=== PATIENT | female | born 1955 | race Caucasian/White ===

== ENCOUNTER 2016-06-14 09:03 | Emergency (ER) | payer OTHER, BC ==
[2016-06-14 09:23] VITALS: BP 172/86
[2016-06-14] MEDS ORDERED: Benzocaine 20% Topical Spray UD MUCMEM ONE (09:27)
[2016-06-14] MEDS ORDERED: Lidocaine 2% Viscous Solution 15 ML Cup PO ONE (09:27)
--- NOTE | 2016-06-14 09:31 | EDM.PDOC ---
ED HPI GENERAL MEDICAL PROBLEM - General Chief Complaint: General Stated Complaint: ORAL ISSUES Time Seen by Provider: 06/14/16 09:20 - History of Present Illness INITIAL COMMENTS - FREE TEXT/NARRATIVE: HISTORY AND PHYSICAL: History of present illness: The patient is a healthy 61-year-old female has been working with a local dentist, Dr. Marte, to address a tooth issue at the right upper posterior molar area. She had a repeat root canal performed there and she was scheduled to come back 2 weeks but missed that appointment. She received antibiotics after that procedure and finish them. She says that she has noted some swelling to her right face and some discomfort in that area and noticed some drainage of pus from the site. She attempted to call the dentist yesterday but the office was closed and she was concerned about an infection and she wanted to interrupt the process of so she could get definitive care this week. She's had no systemic complaints of fever chills sore throat runny nose sinus congestion cough nausea or vomiting Review of systems: As per history of present illness and below otherwise all systems reviewed and negative. Past medical history: As per history of present illness and as reviewed below otherwise noncontributory. Surgical history: As per history of present illness and as reviewed below otherwise noncontributory. Social history: No reported history of drug or alcohol abuse. Family history: As per history of present illness and as reviewed below otherwise noncontributory. Physical exam: General: Well-developed well-nourished female who is nontoxic vital signs of a noted by me. She has only minimal right maxillary swelling appreciated on visual inspection. There is no crepitus to palpation of this area HEENT: Atraumatic, normocephalic, pupils reactive, negative for conjunctival pallor or scleral icterus, mucous membranes moist, throat clear, neck supple, nontender, trachea midline. At the right upper posterior jaw area there is no gross fluctuance no drainage but there is mild tenderness to palpation. There is no cervical adenopathy or nuchal rigidity Lungs: Clear to auscultation, breath sounds equal bilaterally, chest nontender. Heart: S1S2, regular, negative for clicks, rubs, or JVD. Abdomen: Soft, nondistended, nontender. NABS Genitourinary: Deferred. Rectal: Deferred. Extremities: Atraumatic, negative for cords or calf pain. Neurovascular unremarkable. Neuro: Awake, alert, oriented. Cranial nerves II through XII unremarkable. Cerebellum unremarkable. Motor and sensory unremarkable throughout. Exam nonfocal. Diagnostics: [] Therapeutics: Dental balls Impression: Early gum infection Definitive disposition and diagnosis as appropriate pending reevaluation and review of above. Right Upper Tooth/Teeth Pain Score (Numeric/FACES): 4 - Related Data Allergies Allergy/AdvReac Type Severity Reaction Status Date / Time No Known Allergies Allergy Verified 10/21/14 23:17 Home Meds: Home Meds Losartan/Hydrochlorothiazide [Losartan-HCTZ 50-12.5 MG] 50 mg PO PRN 10/21/14 [ History] Past Medical History - Past Surgical History Other GI Surgeries/Procedures: gastric bipass Other Musculoskeletal Surgeries/Procedures:: ankle surgery Social & Family History - Tobacco Use Smoking Status *Q: Never Smoker - Recreational Drug Use Recreational Drug Use: No ED ROS GENERAL - Review of Systems Review Of Systems: ROS reveals no pertinent complaints other than HPI. ED EXAM, GENERAL - Physical Exam Exam: See Below (See dictation) Course - Vital Signs Last Recorded V/S: Last Vital Signs Temp 36.5 C 06/14/16 09:19 Pulse 66 06/14/16 09:19 Resp 16 06/14/16 09:19 BP 172/86 H 06/14/16 09:19 Pulse Ox 95 06/14/16 09:19 - Orders/Labs/Meds Orders: Active Orders 24 hr Category Date Time Status Benzocaine [Hurricaine One 20%] Med 06/14/16 09:27 Once 2 each MUCMEM ONETIME ONE Lidocaine 2% [Xylocaine 2% Viscous] Med 06/14/16 09:27 Once 15 ml PO ONETIME ONE Departure - Departure Time of Disposition: 09:30 Disposition: Home, Self-Care 01 Condition: good Clinical Impression: Oral infection Forms: ED Department Discharge Additional Instructions: The following information is given to patients seen in the emergency department who are being discharged to home. This information is to outline your options for follow-up care. We provide all patients seen in our emergency department with a follow-up referral. The need for follow-up, as well as the timing and circumstances, are variable depending upon the specifics of your emergency department visit. If you don't have a primary care physician on staff, we will provide you with a referral. We always advise you to contact your personal physician following an emergency department visit to inform them of the circumstance of the visit and for follow-up with them and/or the need for any referrals to a consulting specialist. The emergency department will also refer you to a specialist when appropriate. This referral assures that you have the opportunity for followup care with a specialist. All of these measure are taken in an effort to provide you with optimal care, which includes your followup. Under all circumstances we always encourage you to contact your private physician who remains a resource for coordinating your care. When calling for followup care, please make the office aware that this follow-up is from your recent emergency room visit. If for any reason you are refused follow-up, please contact the [facility] emergency department at and ask to speak to the emergency department charge nurse. [facility] Primary care- [place] [address] Please call and schedule an appointment with her dentist this week for definitive care and treatment. Use ice to face for any swelling and use dental balls given to today for pain management along with [id number] Tylenol and ibuprofen. Please take antibiotics until they're finished ER as needed and as discussed - My Orders Last 24 Hours: My Active Orders 06/14/16 09:27 Benzocaine [Hurricaine One 20%] 2 each MUCMEM ONETIME ONE Lidocaine 2% [Xylocaine 2% Viscous] 15 ml PO ONETIME ONE - Assessment/Plan Last 24 Hours: My Active Orders 06/14/16 09:27 Benzocaine [Hurricaine One 20%] 2 each MUCMEM ONETIME ONE Lidocaine 2% [Xylocaine 2% Viscous] 15 ml PO ONETIME ONE
== END 2016-06-14 09:43 | disposition home or self-care (01) ==
LOC: MW.ED 09:03
DX: K04.7 Periapical abscess without sinus (principal); Z98.84 Bariatric surgery status; Z98.890 Other specified postprocedural states
CPT/HCPCS: 99282; A9270; 99283

== ENCOUNTER 2017-11-03 07:32 | Emergency (ER) | payer OTHER, BC ==
[2017-11-03] MEDS ORDERED: Sodium Chloride 0.9% 1,000 ML IV SCH (07:45)
[2017-11-03] MEDS ORDERED: Ondansetron 4 MG/2 ML SDV IVPUSH ONE (07:45)
--- NOTE | 2017-11-03 07:46 | EDM.PDOC ---
ED HPI GENERAL MEDICAL PROBLEM - General Chief Complaint: Abdominal Pain Stated Complaint: RIGHT SIDE PAIN Time Seen by Provider: 11/03/17 07:46 Source of Information: Reports: Patient - History of Present Illness INITIAL COMMENTS - FREE TEXT/NARRATIVE: HISTORY AND PHYSICAL: History of present illness: []Patient presents with right flank pain radiating around to her abdomen for 24 hours no fever vomiting chills sweats she has had some intermittent nausea arrival no chest pain shortness breath headache dizziness palpitation no bowel or urine symptoms Review of systems: As per history of present illness and below otherwise all systems reviewed and negative. Past medical history: As per history of present illness and as reviewed below otherwise noncontributory. Surgical history: As per history of present illness and as reviewed below otherwise noncontributory. Social history: No reported history of drug or alcohol abuse. Family history: As per history of present illness and as reviewed below otherwise noncontributory. Physical exam: HEENT: Atraumatic, normocephalic, pupils reactive, negative for conjunctival pallor or scleral icterus, mucous membranes moist, throat clear, neck supple, nontender, trachea midline. Lungs: Clear to auscultation, breath sounds equal bilaterally, chest nontender. Heart: S1S2, regular, negative for clicks, rubs, or JVD. Abdomen: Soft, nondistended, nontender. Negative for masses or hepatosplenomegaly. Negative for costovertebral tenderness. Pelvis: Stable nontender. Genitourinary: Deferred. Rectal: Deferred. Extremities: Atraumatic, negative for cords or calf pain. Neurovascular unremarkable. Neuro: Awake, alert, oriented. Cranial nerves II through XII unremarkable. Cerebellum unremarkable. Motor and sensory unremarkable throughout. Exam nonfocal. Diagnostics: []CBC CMP UA with culture blood cultures 2 lipase troponin ET abdomen pelvis no contrast Therapeutics: [] 1 L normal saline Morphine 2 mg IV Zofran 8 mg IV GI cocktail Levaquin 500 mg by mouth Toradol 30 mg IV Levaquin 500 mg daily #10 no refill Zofran [place] Patient offered observation admission and refused/declined desiring to treat at home will return if symptoms persist or worsen Impression: Right pyelonephritisfinitive disposition and diagnosis as appropriate pending reevaluation and review of above. Right sided Mid Abdomen Pain Score (Numeric/FACES): 8 - Related Data Allergies Allergy/AdvReac Type Severity Reaction Status Date / Time Fish Containing Products Allergy Difficulty Verified 11/03/17 07:45 Breathing mold Allergy Hives Verified 11/03/17 07:45 Home Meds: Home Meds Alendronate [Fosamax] 35 mg PO WEEKLY 06/14/16 [History] Latanoprost [Xalatan 0.005% Ophth Soln] 1 drop EYEBOTH BEDTIME 06/14/16 [History ] Losartan [Cozaar] 50 mg PO DAILY 06/14/16 [History] Metoprolol Succinate [Toprol XL] 25 mg PO DAILY 06/14/16 [History] Timolol [Betimol] 1 drop EYEBOTH DAILY 06/14/16 [History] PARoxetine [Paxil] 11/03/17 [History] Past Medical History Cardiovascular History: Reports: Hypertension - Past Surgical History GI Surgical History: Reports: Bariatric Procedure Musculoskeletal Surgical History: Reports: Other (See Below) Social & Family History - Family History Family Medical History: Noncontributory - Caffeine Use Caffeine Use: Reports: None ED ROS GENERAL - Review of Systems Review Of Systems: See Below ED EXAM, GENERAL - Physical Exam Exam: See Below Course - Vital Signs Last Recorded V/S: Last Vital Signs Temp 98.3 F 11/03/17 09:23 Pulse 61 11/03/17 09:23 Resp 16 11/03/17 09:23 BP 141/78 H 11/03/17 09:23 Pulse Ox 95 11/03/17 09:23 - Orders/Labs/Meds Orders: Active Orders 24 hr Category Date Time Status EKG Documentation Completion [RC] STAT Care 11/03/17 07:45 Active Abdomen Pelvis wo Cont [CT] Stat Exams 11/03/17 08:09 Taken CULTURE BLOOD [BC] Stat Lab 11/03/17 09:35 Received CULTURE BLOOD [BC] Stat Lab 11/03/17 09:45 Received CULTURE URINE [RM] Stat Lab 11/03/17 08:20 Received Sodium Chloride 0.9% [Normal Saline] 1,000 ml Med 11/03/17 07:45 Active IV STAT Blood Culture x2 Reflex Set [OM.PC] Stat Oth 11/03/17 08:58 Ordered Medication Orders Sodium Chloride (Normal Saline) 1,000 mls @ 125 mls/hr IV STAT BRANNON Last Admin: 11/03/17 08:15 Dose: 125 mls/hr Labs: Laboratory Tests 11/03/17 11/03/17 11/03/17 Range/Units 07:55 07:55 08:10 WBC 3.91 L (4.0-11.0) K/uL RBC 4.42 (4.30-5.90) M/uL Hgb 14.9 (12.0-16.0) g/dL Hct 43.0 (36.0-46.0) % MCV 97.3 (80.0-98.0) fL MCH 33.7 H (27.0-32.0) pg MCHC 34.7 (31.0-37.0) g/dL RDW Std Deviation 45.1 (28.0-62.0) fl RDW Coeff of Gris 13 (11.0-15.0) % Plt Count 176 (150-400) K/uL MPV 9.30 (7.40-12.00) fL Neut % (Auto) 39.9 L (48.0-80.0) % Lymph % (Auto) 43.5 H (16.0-40.0) % [place] % (Auto) 12.5 (0.0-15.0) % Eos % (Auto) 3.3 (0.0-7.0) % Baso % (Auto) 0.8 (0.0-1.5) % Neut # (Auto) 1.6 (1.4-5.7) K/uL Lymph # (Auto) 1.7 (0.6-2.4) K/uL [place] # (Auto) 0.5 (0.0-0.8) K/uL Eos # (Auto) 0.1 (0.0-0.7) K/uL Baso # (Auto) 0.0 (0.0-0.1) K/uL Nucleated RBC % 0.0 /100WBC Nucleated RBCs # 0 K/uL Sodium 141 (136-145) mmol/L Potassium 4.3 (3.5-5.1) mmol/L Chloride 104 (98-107) mmol/L Carbon Dioxide 28.1 (21.0-32.0) mmol/L BUN 10 (7.0-18.0) mg/dL Creatinine 0.7 (0.6-1.0) mg/dL Est Cr Clr Drug Dosing 86.21 mL/min Estimated GFR (MDRD) > 60.0 ml/min Glucose 111 H (74-106) mg/dL Calcium 8.5 (8.5-10.1) mg/dL Total Bilirubin 0.5 (0.2-1.0) mg/dL AST 33 (15-37) IU/L ALT 35 (14-63) IU/L Alkaline Phosphatase 80 (46-116) U/L Troponin I < 0.050 (0.000-0.056) ng/mL Total Protein 7.2 (6.4-8.2) g/dL Albumin 3.5 (3.4-5.0) g/dL Globulin 3.7 H (2.0-3.5) g/dL Albumin/Globulin Ratio 1.0 L (1.3-2.8) Lipase 205 (73-393) U/L Urine Color DARK YELLOW Urine Appearance SLT CLOUDY Urine pH 6.0 (5.0-8.0) Ur Specific [place] 1.020 (1.001-1.035) Urine Protein NEGATIVE (NEGATIVE) mg/dL Urine Glucose (UA) NEGATIVE (NEGATIVE) mg/dL Urine Ketones NEGATIVE (NEGATIVE) mg/dL Urine Occult Blood TRACE-INTACT (NEGATIVE) Urine Nitrite POSITIVE H (NEGATIVE) Urine Bilirubin NEGATIVE (NEGATIVE) Urine Urobilinogen 0.2 (<2.0) EU/dL Ur Leukocyte Esterase SMALL (NEGATIVE) Urine RBC 0-3 (0-2/HPF) Urine WBC 18-25 (0-5/HPF) Ur Epithelial Cells FEW (NONE-FEW) Urine Bacteria 3+ H (NEGATIVE) Meds: Medications Generic Name Dose Route Start Last Admin Trade Name Freq PRN Reason Stop Dose Admin Sodium Chloride 1,000 mls @ 125 mls/hr 11/03/17 07:45 11/03/17 08:15 Normal Saline IV 125 mls/hr STAT BRANNON Administration Discontinued Medications Generic Name Dose Route Start Last Admin Trade Name Freq PRN Reason Stop Dose Admin Al Hydroxide/Mg Hydroxide 15 0 ml 11/03/17 09:48 ml/ Metoclopramide HCl 5 mg/ PO 11/03/17 09:49 Lidocaine HCl 5 ml ONETIME ONE Ketorolac Tromethamine 30 mg 11/03/17 09:47 Toradol IVPUSH 11/03/17 09:48 ONETIME ONE Levofloxacin 500 mg 11/03/17 09:51 Levaquin PO 11/03/17 09:52 ONETIME ONE Morphine Sulfate 2 mg 11/03/17 08:09 11/03/17 08:19 Morphine IVPUSH 11/03/17 08:10 2 mg ONETIME ONE Administration Ondansetron HCl 8 mg 11/03/17 07:45 11/03/17 08:16 Zofran IVPUSH 11/03/17 07:46 8 mg ONETIME ONE Administration Pantoprazole Sodium 80 mg 11/03/17 09:12 11/03/17 09:20 Protonix Iv IVPUSH 11/03/17 09:13 80 mg .BOLUS ONE Administration Departure - Departure Time of Disposition: 09:54 Disposition: Home, Self-Care 01 Condition: Good Clinical Impression: Pyelonephritis - Discharge Information Referrals: Brian Villa MD [Primary Care Provider] - Forms: ED Department Discharge Additional Instructions: Medications as prescribed Return if symptoms persist or worsen or new concerning symptoms develop Follow-up with primary care in 2 weeks sooner as needed [facility] - Primary Care [address] [place] [address] The following information is given to patients seen in the emergency department who are being discharged to home. This information is to outline your options for follow-up care. We provide all patients seen in our emergency department with a follow-up referral. The need for follow-up, as well as the timing and circumstances, are variable depending upon the specifics of your emergency department visit. If you don't have a primary care physician on staff, we will provide you with a referral. We always advise you to contact your personal physician following an emergency department visit to inform them of the circumstance of the visit and for follow-up with them and/or the need for any referrals to a consulting specialist. The emergency department will also refer you to a specialist when appropriate. This referral assures that you have the opportunity for follow-up care with a specialist. All of these measure are taken in an effort to provide you with optimal care, which includes your follow-up. Under all circumstances we always encourage you to contact your private physician who remains a resource for coordinating your care. When calling for follow-up care, please make the office aware that this follow-up is from your recent emergency room visit. If for any reason you are refused follow-up, please contact the [facility] emergency department at and asked to speak to the emergency department charge nurse. - My Orders Last 24 Hours: My Active Orders 11/03/17 07:45 EKG Documentation Completion [RC] STAT Sodium Chloride 0.9% [Normal Saline] 1,000 ml IV STAT 11/03/17 08:09 Abdomen Pelvis wo Cont [CT] Stat 11/03/17 08:20 CULTURE URINE [RM] Stat 11/03/17 08:58 Blood Culture x2 Reflex Set [OM.PC] Stat 11/03/17 09:35 CULTURE BLOOD [BC] Stat 11/03/17 09:45 CULTURE BLOOD [BC] Stat - Assessment/Plan Last 24 Hours: My Active Orders 11/03/17 07:45 EKG Documentation Completion [RC] STAT Sodium Chloride 0.9% [Normal Saline] 1,000 ml IV STAT 11/03/17 08:09 Abdomen Pelvis wo Cont [CT] Stat 11/03/17 08:20 CULTURE URINE [RM] Stat 11/03/17 08:58 Blood Culture x2 Reflex Set [OM.PC] Stat 11/03/17 09:35 CULTURE BLOOD [BC] Stat 11/03/17 09:45 CULTURE BLOOD [BC] Stat
[2017-11-03] MEDS ORDERED: Morphine 2 MG/ML Syringe IVPUSH ONE (08:09)
[2017-11-03 08:39] LABS: CHLORIDE,CL 104 mmol/L (98-107); SODIUM,NA 141 mmol/L (136-145)
[2017-11-03] MEDS ORDERED: Pantoprazole 40 MG Vial IVPUSH ONE (09:12)
[2017-11-03 09:23] VITALS: BP 141/78
[2017-11-03] MEDS ORDERED: Ketorolac 30 MG/ML SDV IVPUSH ONE (09:47)
[2017-11-03] MEDS ORDERED: Alum Hydrox/Mag Hydrox/Simeth 15 ML, Metoclopramide 5 MG, Lidocaine 2% 5 ML PO ONE ×3 (09:48)
[2017-11-03] MEDS ORDERED: Levofloxacin 500 MG Tab PO ONE (09:51)
--- NOTE | 2017-11-03 11:29 | CT ---
EXAM DATE: 11/03/17 PATIENT'S AGE: 62 Patient: KARYNA CHATMAN Facility: [place], [place] Site . Site : [id number] Study: CT Abdomen/Pelvis wo. cont. [id number]/25/2018 8:39:27 AM Ordering Physician: Natalie Connolly Final Report: INDICATION: Right-sided flank pain. TECHNIQUE: Noncontrast CT of the abdomen and pelvis. FINDINGS: There are postsurgical changes of gastric bypass and cholecystectomy. 2 mm nonobstructing stone lower pole right kidney image 70 series 201. No left-sided renal stones. Small parapelvic renal cysts. The unenhanced liver, spleen, pancreas, both adrenal glands, abdominal aorta, iliac arteries, and inferior vena cava are normal. The small and large bowel are negative for obstruction or ileus and there is no ascites or lymphadenopathy. Urinary bladder is largely decompressed. The uterus and both adnexa are unremarkable. Tiny calcified pelvic phleboliths. Clear included lung bases. Scattered hypertrophic and degenerative change of the spine. IMPRESSION: 1. No acute abdominopelvic process identified. 2. 2 mm nonobstructing stone lower pole right kidney. 3. Postsurgical change in the upper abdomen. Please note that all CT scans at this facility use dose modulation, iterative reconstruction, and/or weight-based dosing when appropriate to reduce radiation dose to as low as reasonably achievable. Dictated by Bentley Watters MD @ Nov 03 2017 8:44AM (Electronic Signature) Report Signed by Proxy. JAYLEN
== END 2017-11-03 10:45 | disposition home or self-care (01) ==
LOC: MW.ED 07:32
DX: N12 Tubulo-interstitial nephritis, not specified as acute or chronic (principal); I10 Essential (primary) hypertension; Z91.013 Allergy to seafood; Z88.8 Allergy status to other drugs, medicaments and biological substances
CPT/HCPCS: 36415; 74176; 80053; 81001; 83690; 84484; 85025; 87040; 87086; 93005; 96361; 96374; 96375; 99284; A9270; C9113; J1885; J2270; J2405; J7040; 87088; 87186; 99283

== ENCOUNTER 2020-01-28 09:53 | Emergency (ER) | payer OTHER, BC ==
[2020-01-28] MEDS ORDERED: Pantoprazole 80 MG in Sodium Chloride 0.9% 20 ML IVPUSH ONE (10:24)
--- NOTE | 2020-01-28 10:56 | EDM.PDOC ---
<Jacobo Ruiz - Last Filed: 01/28/20 11:02> ED HPI GENERAL MEDICAL PROBLEM - General Chief Complaint: Gastrointestinal Problem Stated Complaint: BLOOD IN STOOL Time Seen by Provider: 01/28/20 10:00 - Related Data Allergies Allergy/AdvReac Type Severity Reaction Status Date / Time Fish Containing Products Allergy Difficulty Verified 11/03/17 07:45 Breathing mold Allergy Hives Verified 11/03/17 07:45 Home Meds: Home Meds Alendronate [Fosamax] 35 mg PO WEEKLY 06/14/16 [History] Latanoprost [Xalatan 0.005% Ophth Soln] 1 drop EYEBOTH BEDTIME 06/14/16 [Histor y] Losartan [Cozaar] 50 mg PO DAILY 06/14/16 [History] Metoprolol Succinate [Toprol XL] 25 mg PO DAILY 06/14/16 [History] Timolol [Betimol] 1 drop EYEBOTH DAILY 06/14/16 [History] PARoxetine [Paxil] 11/03/17 [History] Departure - Departure Disposition: Home, Self-Care 01 Clinical Impression: Melena, Alcohol abuse - Discharge Information Referrals: Brian Villa MD [Primary Care Provider] - Forms: ED Department Discharge Additional Instructions: The following information is given to patients seen in the emergency department who are being discharged to home. This information is to outline your options for follow-up care. We provide all patients seen in our emergency department with a follow-up referral. The need for follow-up, as well as the timing and circumstances, are variable depending upon the specifics of your emergency department visit. If you don't have a primary care physician on staff, we will provide you with a referral. We always advise you to contact your personal physician following an emergency department visit to inform them of the circumstance of the visit and for follow-up with them and/or the need for any referrals to a consulting specialist. The emergency department will also refer you to a specialist when appropriate. This referral assures that you have the opportunity for follow-up care with a specialist. All of these measure are taken in an effort to provide you with optimal care, which includes your follow-up. Under all circumstances we always encourage you to contact your private physician who remains a resource for coordinating your care. When calling for follow-up care, please make the office aware that this follow-up is from your recent emergency room visit. If for any reason you are refused follow-up, please contact the [facility] Emergency Department at and asked to speak to the emergency department charge nurse. [facility] [address] [place] [address] [facility] [address] [place] [id number] [facility] - General Surgery Professional Building [address] [facility], [address] [place] [address] 1. Take [id number] Prilosec as directed and as discussed. 2. Follow-up with a primary care provider and general surgeon as discussed. Return to the ED as needed and as discussed. <Cassidy Lin - Last Filed: 01/28/20 13:54> ED HPI GENERAL MEDICAL PROBLEM - General Source of Information: Reports: Patient History Limitations: Reports: No Limitations - History of Present Illness INITIAL COMMENTS - FREE TEXT/NARRATIVE: HISTORY AND PHYSICAL: History of present illness: Patient is a 64-year-old female who presents to the ED today with concern of dark stools that she has had 3 episodes of bowel movements with dark she states almost "black" stools. Patient states she had 2 episodes yesterday and one today of black stools. Patient states that she has never had this occur before. Patient states other than the dark stools, there has not been any associated s ymptoms. Patient states that she has not been taking Pepto-Bismol. Patient denies any heartburn. She states that her bowel movements have been normal for her in consistency. Patient states that she does drink 5-6 alcoholic beverages in the evening daily and that this is a routine along with her . Patient states that she does not become intoxicated when she drinks but this "helps her sleep ". Patient states that she does not drink all day and only drinks in the evenings. Patient denies any withdrawal symptoms if she were to not drink. She states she has a history of hypertension and denies any other health history. Patient denies fever, chills, chest pain, shortness of breath, or cough. Denies headache, neck stiff ness, change in vision, syncope, or near syncope. Denies nausea, vomiting, abdominal pain, diarrhea, constipation, or dysuria. Has not noted any blood in urine. Patient has been eating and drinking appropriately. Review of systems: As per history of present illness and below otherwise all systems reviewed and negative. Past medical history: As per history of present illness and as reviewed below otherwise noncontributory. Surgical history: As per history of present illness and as reviewed below otherwise noncontributory. Social history: See social history for further information Family history: As per history of present illness and as reviewed below otherwise noncontributory. Physical exam: General: Patient is alert, oriented, and in no acute distress. Patient sitting comfortably on exam table. Vitals stable and reviewed by me. HEENT: Atraumatic, normocephalic, pupils equal and reactive bilaterally, negative for conjunctival pallor or scleral icterus, mucous membranes moist, TMs normal bilaterally, throat clear, neck supple, nontender, trachea midline. No drooling or trismus noted. No meningeal signs. No hot potato voice noted. Lungs: Clear to auscultation, breath sounds equal bilaterally, chest nontender. Heart: S1S2, regular rate and rhythm without overt murmur Abdomen: Soft, nondistended, nontender. Negative for masses or hepatosplenomegaly. Negative for costovertebral tenderness. Pelvis: Stable nontender. Genitourinary: Deferred. Rectal: Hot Die Press Feeder at bedside Mei Estevez. No lesions, masses, hemorrhoids noted. Rectal tone intact. No internal hemorrhoids or masses noted. Patient does have darker stool on exam. Hemoccult positive. Skin: Intact, warm, dry. No lesions or rashes noted. Extremities: Atraumatic, negative for cords or calf pain. Neurovascular unremarkable. Neuro: Awake, alert, oriented. Cranial nerves II through XII unremarkable. Cerebellum unremarkable. Motor and sensory unremarkable throughout. Exam nonfocal. Notes: Hemoccult positive On exam, patient is vitally stable and appears comfortable. She does have some darker stool noted on rectal exam but no bright red blood. She is Hemoccult positive. Throughout stay in ED, patient remains vitally stable and comfortable. She has no other associative symptoms other than the episode of dark stool this morning and yesterday. Patient has not had any more bowel movements or dark stools since being in the emergency room. Repeat H&H is stable. Admission for observation offered to patient but she declines. All risks vs benefits discussed with patient and expresses understanding. Discussed the importance of stopping drinking alcohol/decreasing alcohol intake and limiting use of NSAID medication until further evaluation by her PCP/general surgery for endoscopy consideration. Discussed taking Prilosec as directed over the next 2 weeks. Patient states she does have an appointment on Thursday with her PCP, Dr. Villa for follow up. Discussed the importance for follow up with a primary care provider and general surgery for endoscopy consideration. Voices understanding and is agreeable to plan of care. Denies any further questions or concerns at this time. Diagnostics: EKG, CBC, CMP, UA, CXR, Trop, PT/INR, PTT, repeat H&H Therapeutics: Protonix Prescription: None Impression: Melena Alcohol abuse Plan: 1. Take [id number] Prilosec as directed and as discussed. 2. Follow-up with a primary care provider and general surgeon as discussed. Return to the ED as needed and as discussed. Definitive disposition and diagnosis as appropriate pending reevaluation and review of above. Past Medical History Cardiovascular History: Reports: Hypertension STONE HAND History: Reports: Musculoskeletal History: Reports: Back Pain, Chronic Neurological History: Reports: Migraines Psychiatric History: Reports: Anxiety Dermatologic History: Reports: Eczema - Past Surgical History GI Surgical History: Reports: Bariatric Procedure Musculoskeletal Surgical History: Reports: Other (See Below) Social & Family History - Family History Family Medical History: No Pertinent Family History Other Dermatologic Family History: Kidney Failure Oncologic: Reports: Other (See Below) Other Oncologic Family History: Mesothelioma - Caffeine Use Caffeine Use: Reports: None ED ROS GENERAL - Review of Systems Review Of Systems: Comprehensive ROS is negative, except as noted in HPI. ED EXAM, GENERAL - Physical Exam Exam: See Below (see dictation) Course - Vital Signs Last Recorded V/S: Last Vital Signs Temp 96.5 F L 01/28/20 10:09 Pulse 77 01/28/20 11:56 Resp 17 01/28/20 11:56 BP 140/81 01/28/20 11:56 Pulse Ox 98 01/28/20 11:56 - Orders/Labs/Meds Orders: Active Orders 24 hr Category Date Time Status EKG Documentation Completion [RC] STAT Care 01/28/20 10:24 Active Hemoccult [Fecal Occult Blood Collection] [RC] Care 01/28/20 10:23 Active ASDIRECTED CULTURE URINE [] Stat Lab 01/28/20 12:01 Received Labs: Laboratory Tests 01/28/20 01/28/20 01/28/20 Range/Units 10:46 10:46 10:46 WBC 5.23 (4.0-11.0) K/uL RBC 4.23 L (4.30-5.90) M/uL Hgb 14.3 (12.0-16.0) g/dL Hct 43.6 (36.0-46.0) % MCV 103.1 H (80.0-98.0) fL MCH 33.8 H (27.0-32.0) pg MCHC 32.8 (31.0-37.0) g/dL RDW Std Deviation 47.6 (28.0-62.0) fl RDW Coeff of Gris 13 (11.0-15.0) % Plt Count 168 (150-400) K/uL MPV 9.50 (7.40-12.00) fL Neut % (Auto) 55.4 (48.0-80.0) % Lymph % (Auto) 29.3 (16.0-40.0) % Weber % (Auto) 13.2 (0.0-15.0) % Eos % (Auto) 1.5 (0.0-7.0) % Baso % (Auto) 0.6 (0.0-1.5) % Neut # (Auto) 2.9 (1.4-5.7) K/uL Lymph # (Auto) 1.5 (0.6-2.4) K/uL Weber # (Auto) 0.7 (0.0-0.8) K/uL Eos # (Auto) 0.1 (0.0-0.7) K/uL Baso # (Auto) 0.0 (0.0-0.1) K/uL Nucleated RBC % 0.0 /100WBC Nucleated RBCs # 0 K/uL INR 1.05 APTT 23.7 (18.6-31.3) SEC Sodium 140 (136-145) mmol/L Potassium 4.1 (3.5-5.1) mmol/L Chloride 102 (98-107) mmol/L Carbon Dioxide 28.9 (21.0-32.0) mmol/L BUN 11 (7.0-18.0) mg/dL Creatinine 0.6 (0.6-1.0) mg/dL Est Cr Clr Drug Dosing 98.07 mL/min Estimated GFR (MDRD) > 60.0 ml/min Glucose 95 (74-106) mg/dL Calcium 8.6 (8.5-10.1) mg/dL Total Bilirubin 0.5 (0.2-1.0) mg/dL AST 24 (15-37) IU/L ALT 32 (14-63) IU/L Alkaline Phosphatase 79 (46-116) U/L Troponin I < 0.050 (0.000-0.056) ng/mL Total Protein 6.9 (6.4-8.2) g/dL Albumin 3.5 (3.4-5.0) g/dL Globulin 3.4 (2.6-4.0) g/dL Albumin/Globulin Ratio 1.0 (0.9-1.6) Lipase 90 (73-393) U/L Urine Color Urine Appearance Urine pH (5.0-8.0) Ur Specific Metaline (1.001-1.035) Urine Protein (NEGATIVE) mg/dL Urine Glucose (UA) (NEGATIVE) mg/dL Urine Ketones (NEGATIVE) mg/dL Urine Occult Blood (NEGATIVE) Urine Nitrite (NEGATIVE) Urine Bilirubin (NEGATIVE) Urine Urobilinogen (<2.0) EU/dL Ur Leukocyte Esterase (NEGATIVE) Urine RBC (0-2/HPF) Urine WBC (0-5/HPF) Ur Epithelial Cells (NONE-FEW) Urine Bacteria (NEGATIVE) Urinalysis Comment 01/28/20 01/28/20 Range/Units 12:01 12:55 WBC (4.0-11.0) K/uL RBC (4.30-5.90) M/uL Hgb 14.1 (12.0-16.0) g/dL Hct 42.6 (36.0-46.0) % MCV (80.0-98.0) fL MCH (27.0-32.0) pg MCHC (31.0-37.0) g/dL RDW Std Deviation (28.0-62.0) fl RDW Coeff of Gris (11.0-15.0) % Plt Count (150-400) K/uL MPV (7.40-12.00) fL Neut % (Auto) (48.0-80.0) % Lymph % (Auto) (16.0-40.0) % Weber % (Auto) (0.0-15.0) % Eos % (Auto) (0.0-7.0) % Baso % (Auto) (0.0-1.5) % Neut # (Auto) (1.4-5.7) K/uL Lymph # (Auto) (0.6-2.4) K/uL Weber # (Auto) (0.0-0.8) K/uL Eos # (Auto) (0.0-0.7) K/uL Baso # (Auto) (0.0-0.1) K/uL Nucleated RBC % /100WBC Nucleated RBCs # K/uL INR APTT (18.6-31.3) SEC Sodium (136-145) mmol/L Potassium (3.5-5.1) mmol/L Chloride (98-107) mmol/L Carbon Dioxide (21.0-32.0) mmol/L BUN (7.0-18.0) mg/dL Creatinine (0.6-1.0) mg/dL Est Cr Clr Drug Dosing mL/min Estimated GFR (MDRD) ml/min Glucose (74-106) mg/dL Calcium (8.5-10.1) mg/dL Total Bilirubin (0.2-1.0) mg/dL AST (15-37) IU/L ALT (14-63) IU/L Alkaline Phosphatase (46-116) U/L Troponin I (0.000-0.056) ng/mL Total Protein (6.4-8.2) g/dL Albumin (3.4-5.0) g/dL Globulin (2.6-4.0) g/dL Albumin/Globulin Ratio (0.9-1.6) Lipase (73-393) U/L Urine Color YELLOW Urine Appearance CLEAR Urine pH 5.5 (5.0-8.0) Ur Specific Metaline 1.025 (1.001-1.035) Urine Protein NEGATIVE (NEGATIVE) mg/dL Urine Glucose (UA) NEGATIVE (NEGATIVE) mg/dL Urine Ketones TRACE H (NEGATIVE) mg/dL Urine Occult Blood SMALL H (NEGATIVE) Urine Nitrite POSITIVE H (NEGATIVE) Urine Bilirubin NEGATIVE (NEGATIVE) Urine Urobilinogen 0.2 (<2.0) EU/dL Ur Leukocyte Esterase NEGATIVE (NEGATIVE) Urine RBC 0-2 (0-2/HPF) Urine WBC 0-2 (0-5/HPF) Ur Epithelial Cells FEW (NONE-FEW) Urine Bacteria FEW (NEGATIVE) Urinalysis Comment Meds: Medications Discontinued Medications Generic Name Dose Route Start Last Admin Trade Name Freq PRN Reason Stop Dose Admin Pantoprazole Sodium 80 mg/ 20 mls @ 420 mls/hr 01/28/20 10:24 01/28/20 10:48 Sodium Chloride IVPUSH 01/28/20 10:26 420 mls/hr ONETIME ONE Administration Departure - Departure Time of Disposition: 13:46 Sepsis Event Note (ED) - Evaluation Sepsis Screening Result: No Definite Risk - Focused Exam Vital Signs: Vital Signs Temp Pulse Resp BP Pulse Ox 01/28/20 11:56 77 17 140/81 98 01/28/20 10:56 68 17 137/82 95 01/28/20 10:09 96.5 F L 73 17 182/99 H 96 - My Orders Last 24 Hours: My Active Orders 01/28/20 10:23 Hemoccult [Fecal Occult Blood Collection] [RC] ASDIRECTED 01/28/20 10:24 EKG Documentation Completion [RC] STAT 01/28/20 12:01 CULTURE URINE [] Stat - Assessment/Plan Last 24 Hours: My Active Orders 01/28/20 10:23 Hemoccult [Fecal Occult Blood Collection] [RC] ASDIRECTED 01/28/20 10:24 EKG Documentation Completion [RC] STAT 01/28/20 12:01 CULTURE URINE [RM] Stat
--- NOTE | 2020-01-28 11:03 | PCM.SN.2 ---
- Free Text/Narrative Note: EG done at 10:42 AM and interpreted 10:45 AM sinus rhythm with a heart rate of 68. MN interval 160 and axis 91. QT 469. There is a right bundle branch block. There are not repolarization abnormalities consistent with a right bundle branch block. When compared to prior in 2018 there is no significant change impression no acute injury
[2020-01-28 11:27] LABS: BLOOD UREA NITROGEN,BUN 11 mg/dL (7.0-18.0); CARBON DIOXIDE,CO2 28.9 mmol/L (21.0-32.0); CHLORIDE,CL 102 mmol/L (98-107); GLUCOSE RANDOM 95 mg/dL (74-106); LIPASE 90 U/L (73-393); POTASSIUM,K 4.1 mmol/L (3.5-5.1); SODIUM,NA 140 mmol/L (136-145)
--- NOTE | 2020-01-28 11:49 | CR ---
Indication: Pain. Dyspnea. Technique: AP portable view of the chest. Comparison: None Findings: The heart is normal in size. The lungs are clear. No infiltrate, pleural effusion, or pneumothorax is identified. Impression: No acute cardiopulmonary process Dictated by Breanna Cherry MD @ Jan 28 2020 11:42AM Signed by Dr. Breanna Cherry @ Jan 28 2020 11:47AM
[2020-01-28 12:20] VITALS: PULSE 77
[2020-01-28 16:07] VITALS: BP 141/78
== END 2020-01-28 14:10 | disposition home or self-care (01) ==
LOC: MW.ED 09:53
DX: K92.1 Melena (principal); F10.10 Alcohol abuse, uncomplicated; I10 Essential (primary) hypertension; F41.9 Anxiety disorder, unspecified; Z79.899 Other long term (current) drug therapy; Z91.013 Allergy to seafood; Z91.048 Other nonmedicinal substance allergy status
CPT/HCPCS: 36415; 71045; 80053; 81001; 82272; 83690; 84484; 85014; 85018; 85025; 85610; 85730; 87086; 93005; 96374; 99285; C9113; 93010; 99284

== ENCOUNTER 2020-02-24 07:15 | Day surgery (SDC) | payer OTHER, BC ==
[~2020-02-24 07:15] MED LIST: Lactated Ringers 1,000 ML IV SCH; Lidocaine 2% 5 ML SDV ONE; Midazolam 1 MG/ML 2 ML SDV ONE; Propofol 200 MG/20 ML SDV ONE; fentaNYL 100 MCG/2 ML SDV ONE
--- NOTE | 2020-02-24 07:36 | PCM.PREANE ---
Preanesthetic Assessment - Anesthesia/Transfusion/Family Hx Anesthesia History: Prior Anesthesia Without Reaction Family History of Anesthesia Reaction: No Transfusion History: No Prior Transfusion(s) Intubation History: Unknown - Review of Systems General: No Symptoms Pulmonary: No Symptoms Cardiovascular: No Symptoms Gastrointestinal: Abdominal Pain, Melena Neurological: No Symptoms Other: Reports: None - Physical Assessment Height: 5 ft 8 in Weight: 99.79 kg ASA Class: 2 Mental Status: Alert & Oriented x3 Airway Class: Mallampati = 2 Dentition: Reports: Normal Dentition, Varna(s) (x4 upper front) Thyro-Mental Finger Breadths: 3 Mouth Opening Finger Breadths: 2 (small mouth) ROM/Head Extension: Full Lungs: Clear to Auscultation, Normal Respiratory Effort Cardiovascular: Regular Rate, Regular Rhythm - Allergies Allergies/Adverse Reactions: Allergies Allergy/AdvReac Type Severity Reaction Status Date / Time Fish Containing Products Allergy Difficulty Verified 02/20/20 10:12 Breathing mold Allergy Hives Verified 02/20/20 10:12 morphine Allergy chest Verified 02/20/20 10:20 pressure - Blood Blood Available: No - Anesthesia Plan Pre-Op Medication Ordered: None - Acknowledgements Anesthesia Type Planned: MAC Pt an Appropriate Candidate for the Planned Anesthesia: Yes Alternatives and Risks of Anesthesia Discussed w Pt/Guardian: Yes Pt/Guardian Understands and Agrees with Anesthesia Plan: Yes PreAnesthesia Questionnaire HEENT History: Reports: Glaucoma Cardiovascular History: Reports: Hypertension Respiratory History: Reports: None Gastrointestinal History: Reports: GERD, Other (See Below) Other Gastrointestinal History: black tarry stools Genitourinary History: Reports: Renal Calculus [employer] History: Reports: Musculoskeletal History: Reports: Back Pain, Chronic Neurological History: Reports: Migraines Psychiatric History: Reports: Anxiety, Depression Endocrine/Metabolic History: Reports: Obesity/BMI 30+ (BMI 33.5) Hematologic History: Reports: None Immunologic History: Reports: None Oncologic (Cancer) History: Reports: None Dermatologic History: Reports: Eczema - Past Surgical History Head Surgeries/Procedures: Reports: None HEENT Surgical History: Reports: Tonsillectomy Cardiovascular Surgical History: Reports: None Respiratory Surgical History: Reports: None GI Surgical History: Reports: Bariatric Procedure, Colonoscopy (7 years ago) Other GI Surgeries/Procedures: gastric bypass Female Surgical History: Reports: D&C Endocrine Surgical History: Reports: None Neurological Surgical History: Reports: None Musculoskeletal Surgical History: Reports: Other (See Below) Other Musculoskeletal Surgeries/Procedures:: ankle surgery Oncologic Surgical History: Reports: None Dermatological Surgical History: Reports: None - SUBSTANCE USE Tobacco Use Status *Q: Never Tobacco User Days Per Week of Alcohol Use: 7 Number of Drinks Per Day: 3 Total Drinks Per Week: 21 - HOME MEDS Home Medications: Home Meds Latanoprost [Xalatan 0.005% Ophth Soln] 1 drop EYEBOTH BEDTIME 06/14/16 [History] Losartan [Cozaar] 50 mg PO DAILY 06/14/16 [History] Metoprolol Succinate [Toprol XL] 25 mg PO DAILY 06/14/16 [History] Timolol [Betimol] 1 drop EYEBOTH DAILY 06/14/16 [History] PARoxetine [Paxil] 10 mg PO DAILY 11/03/17 [History] Omeprazole Magnesium [Prilosec Otc] 2 tab PO DAILY 02/20/20 [History] - CURRENT (IN HOUSE) MEDS Current Meds: Current Medications Lactated Ringer's (Ringers, Lactated) 1,000 mls @ 125 mls/hr IV ASDIRECTED BRANNON Discontinued Medications Fentanyl (Sublimaze) Confirm Administered Dose 100 mcg .ROUTE .STK-MED ONE Stop: 02/24/20 07:09 Lidocaine (Xylocaine-Mpf 2%) Confirm Administered Dose 5 ml .ROUTE .STK-MED ONE Stop: 02/24/20 07:09 Midazolam HCl (Versed 1 Mg/Ml) Confirm Administered Dose 2 mg .ROUTE .STK-MED O NE Stop: 02/24/20 07:09 Propofol (Diprivan 20 Ml) Confirm Administered Dose 400 mg .ROUTE .STK-MED ONE Stop: 02/24/20 07:09
[2020-02-24] MEDS ORDERED: Propofol 200 MG/20 ML SDV ONE ×2 (08:58→08:59)
--- NOTE | 2020-02-24 09:28 | PCM.OPNOTE ---
- General Post-Op/Procedure Note Date of Surgery/Procedure: 02/24/20 Operative Procedure(s): Esophagogastroduodenoscopy with biopsy. Colonoscopy. Pre Op Diagnosis: Melena. History of gastric bypass. Desire for colorectal cancer screening. Post-Op Diagnosis: Mild chronic gastritis. No evidence of colonic neoplasia. Anesthesia Technique: MAC (ASA II) Primary Surgeon: Rakesh Arndt Condition: Good Free Text/Narrative:: DICTATION [id number] CPT CODE [id number]
[2020-02-24] MEDS ORDERED: Lactated Ringers 1,000 ML IV SCH (09:30)
[2020-02-24 09:36] VITALS: PULSE 55
--- NOTE | 2020-02-24 09:59 | PCM.POSTAN ---
POST ANESTHESIA ASSESSMENT - MENTAL STATUS Mental Status: Alert, Oriented - VITAL SIGNS Vital Signs: Last Vital Signs Temp 36.2 C 02/24/20 09:20 Pulse 55 L 02/24/20 09:35 Resp 14 02/24/20 09:35 BP 124/62 02/24/20 09:35 Pulse Ox 97 02/24/20 09:35 - RESPIRATORY Respiratory Status: Respiratory Rate WNL, Airway Patent, O2 Saturation Stable - CARDIOVASCULAR CV Status: Pulse Rate WNL, Blood Pressure Stable - GASTROINTESTINAL GI Status: No Symptoms - PAIN Pain Score: 0 - POST OP HYDRATION Hydration Status: Adequate & Stable - OBSERVATIONS Free Text/Narrative:: No anesthesia problems
--- NOTE | 2020-02-24 09:59 | PCM48HPAN ---
Post Anesthesia Note - EVALUATION WITHIN 48HRS OF ANESTHETIC Vital Signs in Normal Range: Yes Patient Participated in Evaluation: Yes Respiratory Function Stable: Yes Airway Patent: Yes Cardiovascular Function Stable: Yes Hydration Status Stable: Yes Pain Control Satisfactory: Yes Nausea and Vomiting Control Satisfactory: Yes Mental Status Recovered: Yes Vital Signs: Last Vital Signs Temp 36.2 C 02/24/20 09:20 Pulse 55 L 02/24/20 09:35 Resp 14 02/24/20 09:35 BP 124/62 02/24/20 09:35 Pulse Ox 97 02/24/20 09:35 - COMMENTS/OBSERVATIONS Free Text/Narrative:: No anesthesia problems
[2020-02-24 11:02] VITALS: BP 131/60
--- NOTE | 2020-02-24 11:13 | OR ---
SURGEON: Rakesh Arndt M.D. DATE OF PROCEDURE: 02/24/2020 OPERATION PERFORMED: Colonoscopy. PRIMARY SURGEON: Rakesh Arndt M.D. ANESTHESIA: MAC. ASA CLASSIFICATION: II. PREOPERATIVE DIAGNOSES: 1. Melena. 2. Desire for colorectal cancer screening. POSTOPERATIVE DIAGNOSIS: No evidence of neoplasia. DESCRIPTION OF PROCEDURE: With the patient having completed upper GI endoscopy, she was maintained in the left lateral decubitus position. The colonoscope was inserted into the rectum and advanced with moderate difficulty to the cecum. The cecum was identified by internal landmarks and external pressure. The colonoscope was then retroflexed to visualize the ascending colon from below. The colonoscope was then straightened and slowly withdrawn. The cecum, ascending colon, hepatic flexure, transverse colon, splenic flexure, descending colon, sigmoid colon, and rectum were very well visualized. No tumors, polyps, diverticula, or angiodysplastic changes were noted anywhere in the lower gastrointestinal tract. No inflammatory lesions were identified. No ulcers were seen. The colonoscope was withdrawn to the rectum and retroflexed to visualize the anal orifice from above. Again, no tumors or polyps were seen, and there were no acute hemorrhoidal changes. The colonoscope was then straightened, the rectum aspirated, and the colonoscope removed. The patient tolerated the procedure well and was taken to recovery room in stable condition. RUTH / MACK /[id number]
--- NOTE | 2020-02-24 13:45 | OR ---
SURGEON: Rakesh Arndt M.D. DATE OF PROCEDURE: 02/24/2020 OPERATION PERFORMED: Esophagogastroduodenoscopy with biopsy. ANESTHESIA: MAC. ASA CLASSIFICATION: II. PREOPERATIVE DIAGNOSES: 1. Melena. 2. History of Lauren-en-Y gastric bypass for bariatric surgery. POSTOPERATIVE DIAGNOSES: 1. Widely patent anastomosis. 2. Mild chronic gastritis, no acute ulcerations. DESCRIPTION OF PROCEDURE: The patient was taken to the endoscopy room and positioned on the endoscopy table in the left lateral decubitus position. Time-out was called for appropriate identification of the patient and procedure. The bite block was placed between the patient's teeth. The gastroscope was inserted through the bite block into the oropharynx and advanced without difficulty into the stomach. The stomach was small given her history of bariatric surgery. This had the appearance of a Lauren-en-Y bypass, and the efferent limb was easily cannulated, and the scope advanced through that. No acute ulcerations were noted and no blood was seen in the upper tract. Once the gastroscope was withdrawn to the anastomosis, this was biopsied to rule out H. pylori. No acute ulcerations were noted. The pouch was large enough that I could retroflex the scope and visualize the esophageal hiatus from below. No significant hiatal hernia was noted. The gastroscope was then straightened after biopsying the stomach and slowly withdrawn. The GE junction was well defined and showed no acute ulcerations or inflammatory changes. The esophagus demonstrated good contractility. The vocal cords were briefly visualized as the scope was withdrawn and were noted to move symmetrically. No vocal cord lesions were identified. The gastroscope was then removed with the patient having tolerated this portion of the procedure well. Following colonoscopy, she was taken to recovery room in stable condition. RUTH / MACK /[id number]
== END 2020-02-24 10:15 | disposition home or self-care (01) ==
LOC: MW.SDS 07:15
PROVIDERS: ATTEND Surgery
DX: K92.1 Melena (principal); K29.50 Unspecified chronic gastritis without bleeding; I10 Essential (primary) hypertension; E66.9 Obesity, unspecified; G43.909 Migraine, unspecified, not intractable, without status migrainosus; Z98.890 Other specified postprocedural states; Z79.899 Other long term (current) drug therapy; Z98.84 Bariatric surgery status; Z98.0 Intestinal bypass and anastomosis status; Z91.013 Allergy to seafood; Z88.5 Allergy status to narcotic agent; Z68.33 Body mass index [BMI] 33.0-33.9, adult; Z90.89 Acquired absence of other organs
CPT/HCPCS: 43239; 45378; 88305; 88312; J2001; J2250; J2704; J3010; J7120; 00813